=== PATIENT | female | born 1970 | race Caucasian/White ===

== ENCOUNTER → 2019-04-28 17:59 | Outpatient (CLI) | payer OTHER, SELFPAY ==
--- NOTE | 2019-04-28 18:02 | DI.MRI.S_ITS ---
PROCEDURE: MR KNEE RT WO CON INDICATIONS: RIGHT KNEE PAIN TECHNIQUE: Noncontrast sagittal PD fast spin echo and T2 fast spin echo with fat saturation, sagittal 3-D FLASH with fat saturation; coronal T1 spin echo and PD fast spin echo with fat saturation, and axial PD fast spin echo with fat saturation through the knee. COMPARISON: None. FINDINGS: Image quality: Excellent. Menisci: The medial meniscus is normal in size and signal intensity. Signal abnormality involving body and posterior horn of lateral meniscus is seen extending to both superior and inferior articulating surfaces concerning for complex tear. The meniscal root ligaments appear intact. Cruciate ligaments: The anterior and posterior cruciate ligaments appear intact. Medial structures: The medial collateral ligament appears intact. The posterior oblique ligament, semimembranosus tendon insertions, oblique popliteal ligament, and meniscocapsular junction appear intact. Visualized portions of the pes anserinus tendons appear normal. No abnormal bursal fluid. Lateral structures: The lateral collateral ligament, long and short heads of the biceps femoris tendon appear intact. The popliteus tendon appears normal; the popliteofibular ligament appears intact. The posterosuperior and anteroinferior popliteomeniscal fascicles appear intact. The arcuate and fabellofibular ligaments appear intact, on either side of the lateral inferior geniculate artery. Iliotibial band appears normal. Anterior structures: The quadriceps and patellar tendons appear intact. Patellar alignment is normal. No femoral trochlear dysplasia or ventral trochlear prominence. No edema in the infrapatellar fat pad. Bones and cartilage: No bone marrow contusions or fractures. Low-grade chondromalacia involving medial femorotibial compartment and patellofemoral compartment is seen more prominent involving apex and lateral facet of patella cartilage. Joint space: There is small amount of joint fluid. No Malhotra's cyst. Normal appearing synovial plicae are incidentally noted. IMPRESSION: 1. Subtle complex tear involving body and posterior horn of lateral meniscus extending to both superior and inferior articulating surfaces. No evidence of focal medial meniscal tear. 2. Cruciate ligaments are intact. 3. 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 Small joint effusion. Dictated by: David Thrasher M.D. on 04/29/2019 at 9:02 Approved by: David Thrasher M.D. on 04/29/2019 at 9:10
== END ==
PROVIDERS: PCP Family Medicine; Referring Provider Orthopaedic Surgery Sports Medicine; Visit Provider Orthopaedic Surgery Sports Medicine
DX: M25.561 Pain in right knee (principal); S83.271A Complex tear of lateral meniscus, current injury, right knee, initial encounter; M22.41 Chondromalacia patellae, right knee; M25.461 Effusion, right knee
CPT/HCPCS: 73721

== ENCOUNTER 2019-11-28 22:48 | Emergency (ER) | payer BC, SELFPAY ==
--- NOTE | 2019-11-28 22:56 | ED.SOB ---
HPI - SOB/Dyspnea General Chief Complaint: Dizziness Stated Complaint: Covid +, cough, dizziness Time Seen by Provider: 11/28/19 22:52 Source: patient Mode of arrival: Ambulatory Limitations: no limitations History of Present Illness HPI Narrative: 49F non smoker with known COVID+ presents with ongoing cough which is preventing her from getting good sleep. She doesn't feel well overall, but doesn't feel particularly short of breath. She had an episode when she felt briefly dizzy earlier today and wanted to be seen. She's had no N/V/D. MD Complaint: cough Related Data Previous Rx's Medication Instructions Recorded benzonatate [Tessalon Perles] 100 mg PO TID PRN #14 cap 11/29/19 promethazine-codeine 5 ml PO Q4-6H PRN #473 ml 11/29/19 Review of Systems Constitutional Constitutional: Denies chills, Denies fatigue, Denies fever(s), Denies frequent falls, Denies lethargy and Denies weakness Eyes Eyes: Denies change in vision, Denies eye discharge, Denies irritation and Denies loss of vision ENT Ears, Nose, Mouth, and Throat: Denies change in voice, Denies dizziness, Denies neck pain, Denies sore throat and Denies throat swelling Cardiovascular Cardiovascular: Denies chest pain, Denies irregular heart rhythm, Denies lightheadedness, Denies palpitations, Denies dyspnea, Denies dyspnea on exertion and Denies orthopnea Respiratory Respiratory: Denies cough, Denies dyspnea, Denies dyspnea on exertion and Denies wheezing Gastrointestinal Gastrointestinal: Denies abdominal pain, Denies change in bowel habits, Denies diarrhea, Denies nausea and Denies vomiting Musculoskeletal Musculoskeletal: Denies neck pain and Denies numbness Integumentary/Breasts Skin/Breast: Denies pruritus, Denies erythema, Denies rash and Denies wounds Neurologic Neurologic: Denies behavioral changes, Denies confusion, Denies dizziness, Denies frequent falls, Denies loss of vision, Denies numbness and Denies weakness Psychiatric Psychiatric: Denies anxiety, Denies behavioral changes, Denies confusion, Denies depression, Denies homicidal ideation and Denies suicidal ideation Endocrine Endocrine: Denies fatigue, Denies flushing and Denies palpitations Hematologic/Lymphatic Hematologic/Lymphatic: Denies easy bruising Allergic/Immunologic Allergic/Immunologic: Denies urticaria, Denies throat swelling and Denies wheezing Exam Narrative Exam Narrative: GENERAL: [49] year old patient appears stated age. Well-nourished, well-developed patient, in mild distress. Frequent dry hacking cough HEAD: Atraumatic. Normocephalic. EYES: Pupils equal round and reactive. Extraocular motions intact. No scleral icterus. No injection or drainage. ENT: Nose without bleeding, purulent drainage. Throat without erythema, tonsillar hypertrophy or exudate. Airway patent. NECK: Trachea midline. Non tender CARDIOVASCULAR: Regular rate and rhythm without murmurs, gallops, or rubs. RESPIRATORY: Clear to auscultation. Breath sounds equal bilaterally. No wheezes, rales, or rhonchi. GASTROINTESTINAL: Abdomen soft, non-tender, nondistended. EXTREMITIES: No edema or joint tenderness. BACK: Nontender without deformity or crepitance. No flank tenderness. NEURO: AOx3. SKIN: No rash or erythema of visible areas Initial Vital Signs Initial Vital Signs: Vital Signs Temperature 98.9 F 11/28/19 22:58 Course Orders Ordered: ED Orders 11/28/19 23:35 XR chest 1V Stat 11/28/19 23:45 Complete Blood Count AUTO DIFF Stat Comprehensive Metabolic Panel Stat Troponin & CK Cardiac Panel Stat Discontinued Medications Acetaminophen/Codeine Phosphate (Tylenol Oral [place] 120-12 Mg/5 Ml) 10 ml PO NOW ONE Stop: 11/29/19 01:48 Last Admin: 11/29/19 02:00 Dose: 10 ml Documented by: LEDA Sodium Chloride (Normal Saline 0.9%) 1,000 mls @ 1,000 mls/hr IV BOLUS ONE Stop: 11/29/19 00:33 Last Infusion: 11/29/19 01:33 Dose: 0 mls/hr Documented by: Admin: 11/28/19 23:50 Dose: 1,000 mls/hr Documented by: LEDA Vital Signs Vital signs: Vital Signs - 8 hr 11/28/19 22:58 11/29/19 00:11 11/29/19 00:30 Temperature 98.9 F Pulse Rate 94 H 93 H Respiratory Rate 20 21 Pulse Oximetry 96 98 11/29/19 01:00 11/29/19 01:30 Temperature Pulse Rate 93 H 90 Respiratory Rate 18 23 Pulse Oximetry 98 97 MDM - SOB/Dyspnea Lab Data Result diagrams: 11/28/19 23:45 11/28/19 23:45 Labs: Lab Results 11/28/19 11/28/19 11/28/19 Range/Units 23:45 23:45 23:45 WBC 15.9 H (4.5-11.0) X10^3/uL RBC 4.42 (4.0-5.2) X10^6/uL Hgb 12.3 (12.0-16.0) g/dL Hct 37.3 (36-46) % MCV 84.4 (80-100) fL MCH 27.9 (26-34) PG MCHC 33.1 (30-36) % RDW 14.0 (11.6-14.8) % Plt Count 466 H (150-400) X10^3/uL Neut % (Auto) 80.0 H (50-75) % Lymph % (Auto) 13.6 L (25-40) % [place] % (Auto) 5.6 (3-14) % Eos % (Auto) 0.3 L (2-4) % Baso % (Auto) 0.5 (0-2) % Neut # (Auto) 26078 H (3375-2700) /uL Lymph # (Auto) 2200 (4062-9168) /uL [place] # (Auto) 900 (0-900) /uL Eos # (Auto) 0 (0-450) /uL Baso # (Auto) 100 (0-100) /uL Sodium 139 (137-145) mmol/L Potassium 3.8 (3.4-5.1) mmol/L Chloride 106 (98-107) mmol/L Carbon Dioxide 23 (22-32) mmol/L BUN 13 (7-17) mg/dL Creatinine 0.68 (0.52-1.04) mg/dL Estimated GFR > 60.0 (>60) mL/min BUN/Creatinine Ratio 19.1 (6-22) Glucose 94 (70-100) mg/dL Calcium 9.5 (8.4-10.2) mg/dL Total Bilirubin 0.3 (0.2-1.3) mg/dL AST 39 H (14-36) IU/L ALT 46 H (<35) IU/L Alkaline Phosphatase 86 (38-126) U/L Total Creatine Kinase 27 L (30-135) U/L CK-MB (CK-2) TNP CK-MB (CK-2) Rel Index TNP Troponin I < 0.012 (0.01-0.034) ng/mL Total Protein 7.5 (6.3-8.2) g/dL Albumin 4.2 (3.5-5.0) g/dL Globulin 3.3 (1.7-4.1) g/dL Albumin/Globulin Ratio 1.3 (1.0-2.8) Urine Dip Bedside Urine Glucose Negative Bedside Urine Bilirubin - Negative Bedside Urine Ketone - Negative Urine Specific [place] 1.015 Bedside Urine Occult Blood - Negative Bedside Urine pH 7.5 Bedside Urine Protein - Negative Bedside Urine Urobilinogen - Negative Bedside Urine Nitrite - Negative Bedside Urine Leukocytes - Negative Esterase MDM Narrative Medical decision making narrative: Patient with known coronavirus is coughing a fair amount but in no other significant respiratory distress. She is not requiring supplemental oxygen and otherwise has a relatively reassuring story, exam set of labs. Extensive return precautions have been given questions answered to her apparent satisfaction. Discharge Plan Departure Patient Disposition: Home Clinical Impression: COVID-19 Discharge Date/Time: 11/29/19 02:17 Instructions: Coronavirus Disease 2019 Activity Restrictions/Additional Instructions: *You have been diagnosed with [ viral pneumonia, which based on your symptoms, labs and imaging is highly suspicious for coronavirus] *What to do: * per recommendations from the CDC and the [facility] [place] Department of Health * stay home except to get medical care. Restrict activities outside your home, except for getting medical care. Do not go to work, school, or public areas. Avoid using public transportation, ride sharing, or taxis. * separate yourself from other people in your home. * call ahead before visiting your doctor * Wear a facemask * Cover your coughs and sneezes * Clean your hands often * Avoid sharing household items * Clean all high-touch services every day * Monitor your symptoms and seek prompt medical attention if your illness is worsening, particularly with difficulty in breathing. Discussed continuing home isolation * for individuals with symptoms who are confirmed or suspected cases of COVID-19 and are directed to care for themselves at home, discontinue home isolation under the following conditions: 1. At least 72 hours have passed since recovery, defined as resolution of fever without the use of fever reducing medications, and improvement in respiratory symptoms (cough, shortness of breath) AND, 2. At least 7 days have passed since symptoms 1st appeared Individuals with laboratory confirmed COVID-19 who have not had any symptoms may discontinue home isolation when at least 7 days have passed since the date of their 1st COVID-19 diagnostic test and have had no subsequent illness Prescriptions: New benzonatate [Tessalon Perles] 100 mg capsule 100 mg PO TID PRN (Reason: cough) Qty: 14 RF: 0 promethazine-codeine 6.25-10 mg/5 mL syrup 5 ml PO Q4-6H PRN (Reason: cough) Qty: 473 RF: 0 Referrals: Jeremie Mejía MD [Primary Care Provider] -
[2019-11-28 22:58] VITALS: TEMP 37.2
--- NOTE | 2019-11-28 23:35 | DI.RAD.S_ITS ---
PROCEDURE: XR CHEST 1V INDICATIONS: SOB, cough TECHNIQUE: One view of the chest was acquired. COMPARISON: None. FINDINGS: Surgical changes and devices: Cervical spine fixation hardware. Lungs and pleura: Lungs are clear. No pleural effusions or pneumothorax. Mediastinum: Mediastinal contours appear normal. Heart size is normal. Bones and chest wall: No suspicious bony lesions. Overlying soft tissues appear unremarkable. IMPRESSION: No acute cardiopulmonary disease process. Dictated by: Mery Rodriguez MD, PhD on 11/29/2019 at 8:58 Approved by: Mery Rodriguez MD, PhD on 11/29/2019 at 8:58
[2019-11-28] MEDS: SODIUM CHLORIDE 0.9% 1,000 ML 1000 ML IV (23:50)
[2019-11-28 23:54] LABS: Add Manual Diff / Slide Review NO; Basophils Absolute Auto 100 /uL (0-100); Basophils Percent Auto 0.5 % (0-2); Eosinophils Absolute Auto 0 /uL (0-450); Eosinophils Percent Auto 0.3 % (2-4); Hematocrit 37.3 % (36-46); Hemoglobin 12.3 g/dL (12.0-16.0); Lymphocytes Absolute Auto 2200 /uL (1100-4500); Lymphocytes Percent Auto 13.6 % (25-40); Mean Corpuscular HGB Conc 33.1 % (30-36); Mean Corpuscular Hemoglobin 27.9 PG (26-34); Mean Corpuscular Volume 84.4 fL (80-100); Monocytes Absolute Auto 900 /uL (0-900); Monocytes Percent Auto 5.6 % (3-14); Neutrophils Absolute Auto 12700 /uL (1500-7000); Platelet Count 466 X10^3/uL (150-400); Red Blood Cell Count 4.42 X10^6/uL (4.0-5.2); White Blood Cell Count 15.9 X10^3/uL (4.5-11.0)
[2019-11-29 00:07] LABS: Alanine Aminotransferase 46 IU/L (<35); Albumin 4.2 g/dL (3.5-5.0); Albumin Globulin Ratio 1.3 (1.0-2.8); Alkaline Phosphatase 86 U/L (38-126); Aspartate Aminotransferase 39 IU/L (14-36); BUN Creatinine Ratio 19.1 (6-22); Bilirubin Total 0.3 mg/dL (0.2-1.3); Blood Urea Nitrogen 13 mg/dL (7-17); Calcium 9.5 mg/dL (8.4-10.2); Carbon Dioxide 23 mmol/L (22-32); Chloride 106 mmol/L (98-107); Creatine Kinase 27 U/L (30-135); Estimated Glomerular Filt Rate > 60.0 mL/min (>60); Globulin 3.3 g/dL (1.7-4.1); Glucose 94 mg/dL (70-100); HEMOLYSIS < 15 (0-50); Potassium 3.8 mmol/L (3.4-5.1); Sodium 139 mmol/L (137-145); Total Protein 7.5 g/dL (6.3-8.2)
[2019-11-29 00:11] VITALS: PULSE 94; RESP 20; O2SAT 96
[2019-11-29 00:18] LABS: Troponin I < 0.012 ng/mL (0.01-0.034)
[2019-11-29 00:30] VITALS: PULSE 93; RESP 21; O2SAT 98
[2019-11-29 01:00] VITALS: PULSE 93; RESP 18; O2SAT 98
[2019-11-29 01:30] VITALS: PULSE 90; RESP 23; O2SAT 97
[2019-11-29] MEDS: ACETAMINOPHEN/CODEINE SOLN 5 ML SOLUTION 10 ML PO (02:00)
== END 2019-11-29 02:17 | disposition home or self-care (01) ==
PROVIDERS: Emergency Provider Emergency Medicine; PCP Family Medicine
DX: U07.1 COVID-19 (principal); R06.02 Shortness of breath; R42 Dizziness and giddiness; R05 Cough
CPT/HCPCS: 36415; 71045; 80053; 81003; 82550; 82553; 84484; 85025; 96360; 96361; 99284